=== PATIENT | female | born 1995 | race Hispanic/Latino ===

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

== ENCOUNTER 2017-05-02 16:53 | Inpatient (IN) | payer OTHER ==
[~2017-05-02] VITALS: Ht 157.5 cm; Wt 68.0 kg
[~2017-05-02 16:53] MED LIST changes: +METO10TA3 PO
[2017-05-02] MEDS ORDERED: Carboprost 250 mCg/mL Inj IM PRN (17:35)
[2017-05-02] MEDS ORDERED: Oxytocin 10 Unit/mL Inj IM PRN (17:35)
[2017-05-02] MEDS ORDERED: Lactated Ringer's 1,000 ML IV PRN (17:35)
[2017-05-02] MEDS ORDERED: Sodium Chloride LOK Flush 10 mL Syringe IVFLUSH PRN (17:35)
[2017-05-02] MEDS ORDERED: Hemorrhage Kit, Post Partum XX ONE (17:35)
[2017-05-02] MEDS ORDERED: Oxytocin 30 Units/500 mL LR 30 UNITS in IV Premix 1 EACH IV PRN (17:35)
[2017-05-02] MEDS ORDERED: Methylergonovine 0.2 mg/mL Inj IM PRN (17:35)
[2017-05-02] MEDS ORDERED: fentaNYL-PF 50 mCg/mL 2 mL Inj IVPUSH PRN (17:35)
[2017-05-02 18:15] LABS: Mean Corpuscular Hemoglobin 26.2 pg (27.0-35.0)
[2017-05-02] MEDS ORDERED: EPHEDrine Sulfate 50 mg/mL Inj IVPUSH PRN (19:20)
[2017-05-02] MEDS ORDERED: Ondansetron 2 mg/mL 2 mL Inj IVPUSH PRN (19:20)
[2017-05-02] MEDS ORDERED: Atropine 1 mg/10 mL (Code) Syringe IVPUSH PRN (19:20)
[2017-05-02] MEDS ORDERED: Lactated Ringer's 500 ML IV ONE (19:20)
[2017-05-02] MEDS ORDERED: fentaNYL 2 mCg/mL-Bupiv 0.125% 100 ML EPIDURAL SCH (19:20)
[2017-05-02] MEDS: Lactated Ringer's 1,000 ML IV SCH (19:20)
--- NOTE | 2017-05-02 20:01 | PCM.HPANE ---
Patient Data Surgeon Admitting Provider:Klaus Johansen MD Attending Provider:Klaus Johansen MD Primary Care Physician:Nopcp Other Provider: Reason for Visit Term Labor TERM LABOR Ht/WT & BMI Body Mass Index Allergies Coded Allergies: No Known Allergies (Verified Allergy, Unknown, 09/18/16) Past Anesthesia History Anesthesia History: Denies:: Abnormal Airway, Anesthesia Reactions, Difficult Intubation, Fam Anesthesia Reaction, Fam Malignant Hypertherm, Malignant Hyperthermia Diabetes History Hx Diabetes?: No MRSA MRSA: No Medications Hypertension Medication: No Home Meds Incl Beta Estrella: No Active Scripts Metoclopramide 10 Mg [id number] Mg PO QID PRN For Nausea #30 TABLET Ref 0 Prov:Jessika He MD 09/18/16 Amoxicillin 500 Mg [id number] Mg PO TID #21 CAPSULE Ref 0 Prov:Jessika He MD 08/29/16 Naproxen (Naprosyn)500 Mg [id number] Mg PO BID PRN For Pain #30 TABLET Prov:Colton Bui MD 11/21/15 Reported Medications Amphet Asp/Amphet/D-Amphet (Adderall)20 Mg [id number] Mg PO DAILY #30 TABLET Ref 0 02/19/15 History History of ENT Problems?: No HEENT History: Denies:: Abnormal Airway Cataracts Difficult Intubation Dysphagia Glaucoma Hearing Problem Sinus Problem TMJ Denture Type: None Teeth Condition: Within Normal Limits Hx of Heart Problems?: No Cardiovascular History: Denies:: AICD Abdominal Aortic Aneurism Atrial Fibrillation Cardiac Surgery Chest Pain Congestive Heart Failure Coronary Artery Disease Edema Heart Murmur Hypertension Irregular Heartbeat Pacemaker Peripheral Vascular Rheumatic Fever Thrombophlebitis Valvular Heart Disease Hx of Respiratory Problem?: No Respiratory History: Denies:: Asthma COPD Chest Surgery Cough Dyspnea Emphysema Hemoptysis Oxygen Administration Pneumonia Pulmonary Embolism Tuberculosis Use of C-PAP Machine Use of Inhalers / NEBS Hx Neurologic Problems?: No Neurological History: Denies:: Alzheimer's Disease CVA Dementia Dizziness Headaches Multiple Sclerosis Parkinson's Disease Peripheral Neuropathy Seizures TIA Hx of GI Problems?: No Gastrointestinal History: Denies:: Cirrhosis Diverticulitis Gall Bladder Disease Gastroesphageal Reflux Gastrointestinal Bleeding Heartburn Hepatitis Hiatal Hernia Liver Disease Rectal Bleeding Hx of Problems?: No Female Hx: Positive for:: Currently Hx Musculoskeletal Problems?: No Hx Surgeries?: No Hx Diabetes: No Hx Alcohol Use: NoHx Substance Use: No (occasional marijuana) Smoking Status: Never Smoker Have You Smoked inLast 12 mo: No Stop/Bang LEXI Risk Assessment: Low Risk, <3 Yes Risk Assessment Category Category 1A: Patient has history of documented sleep apnea, and HAS NOT received any narcotic, sedative or anesthesia administration during this stay. Category 1B: Patient has history of documented sleep apnea, and HAS received any narcotic , sedative or anesthesia administration during this stay Category 2: Patient has SUSPECTED Obstructive Sleep Apnea, and HAS received any narcotic , sedative or anesthesia administration during this stay. Category 3: Patient has SUSPECTED Obstructive Sleep Apnea and HAS NOT received narcotic, sedative or anesthesia administration during this stay. Category 4: Outpatient in Procedural Areas with known sleep apnea or who screen positive for High Risk via the STOP/BANG questionnaire. Exam Exam General Appearance: Alert, Oriented X3, Cooperative, No Acute Distress HEENT/AIRWAY: MP 2 Lungs: Clear to Auscultation, Normal Air Movement Heart: Exam Unremarkable, Regular Rate/Rhythm, No Murmurs/Rubs/Gallops Meds/Labs/Diagnostics Labs Test 05/02/17 18:00 White Blood Count 18.3th/mm3 (3.8-10.1) Red Blood Count 5.30mil/mm3 (3.90-5.20) Hemoglobin 13.9g/dL (12.0-15.6) Hematocrit 42.4% (35.0-46.0) Mean Corpuscular Volume 80.0fL (81-100) Mean Corpuscular Hemoglobin 26.2pg (27.0-35.0) Mean Corpuscular Hemoglobin Concent 32.8% (32.0-37.0) Red Cell Distribution Width 19.5% (12.3-15.4) Platelet Count 201bil/L (150-400) Plan Impression Patient chart reviewed, patient interviewed and anesthestic plan with risks, benefits, and alternatives discussed, and informed consent obtained. NPO per Anesth. Guidelines: Yes ASA Physical Status: ASA1 Normal Healthy Anesthetic Plan: Epidural Bene/Risks/Altern/Consents: Yes HP Complete Prior to Induction: Yes Kelvin Cotton MD May 02, 2017 19:20
[2017-05-03] MEDS: Lactated Ringer's 1,000 ML IV SCH ×6 (00:09→19:20)
[2017-05-03] MEDS ORDERED: Methylergonovine 0.2 mg/mL Inj IM PRN (00:10)
[2017-05-03] MEDS ORDERED: Hemorrhage Kit, Post Partum XX ONE (00:10)
[2017-05-03] MEDS ORDERED: Oxytocin 10 Unit/mL Inj IM PRN (00:10)
[2017-05-03] MEDS ORDERED: Oxytocin 30 Units/500 mL LR 30 UNITS in IV Premix 1 EACH IV PRN (00:10)
[2017-05-03] MEDS ORDERED: Benzocaine (Dermoplast) 20% 60 Gm Spray TOPICAL PRN (00:10)
[2017-05-03] MEDS ORDERED: Witch Hazel-Glycerin Pads TOPICAL PRN (00:10)
[2017-05-03] MEDS ORDERED: LANOlin HPA 7 Gm Ointment TOPICAL PRN (00:10)
[2017-05-03] MEDS ORDERED: Carboprost 250 mCg/mL Inj IM PRN (00:10)
--- NOTE | 2017-05-03 00:16 | PCM.OBVAG ---
Vaginal Delivery Date of Service May 03, 2017 Pre Operative Diagnosis Pre Operative Diagnosis Term gestation, labor Post Operative Diagnosis Post Operative Diagnosis Term gestation, delivered Procedure Obstetical Procedure: Normal Spontaneous Vaginal Delivery X Ray Inspector/Seismograph Observer Provider and Seismograph Observer: Klaus Johansen MD Indication for Procedure Induction: Active labor, AROM, Progressed normally through labor Findings Obstetrical Findings: (Female), Cord (3 Vessel), Presentation (Vertex) , Placenta (Intact/Normal), Perineal Laceration (None) Analgesia/Medications Obstetrical Anesthesia: Epidural Procedure Details Procedure Details Patient is a 22 year-old at 40 weeks EGA, presenting in active phase labor. Labor progressed without incident and she delivered via uncomplicated . Blood Loss & Administration Estimated Blood Loss: 250 Post Procedure Plan Post delivery Condition: Mom stable, Baby stable to nursery Klaus Johansen MD May 03, 2017 00:16
[2017-05-03] MEDS: Sodium Chloride LOK Flush 10 mL Syringe IVFLUSH SCH ×3 (00:30→16:30)
--- NOTE | 2017-05-03 07:10 | PCM.ANEP1 ---
Post Anesthesia PACU Phase 1 Assessment Anesthetic Administered: Epidural Level of Alertness: Awake, talking CHOPRA's with Equal Strength: Yes Pain: No Nausea or Vomiting: No CV Function & Hydration Stable: Yes Airway Device: none Oxygen Delivery: Room Air Lungs: Clear to Auscultation, Normal Air Movement PACU Phase 2 Assessment Complications: No Follow up Care: N/A Patient Instructions Provided: N/A Kelvin Cotton MD May 03, 2017 07:10
--- NOTE | 2017-05-03 08:42 | PCM.PNOBPP ---
Subjective Date of Service May 03, 2017 Post : Spontaneous Vaginal Delivery Visit History day #1 Subjective Patient without complaints. Lochia: Normal Pain Management: PO pain meds, No or Minimal Pain Gastrointestinal: Good Appetite Postop Activity: Ambulating Independently Labs Laboratory Tests 05/02/17 18:00: White Blood Count 18.3, Red Blood Count 5.30, Hemoglobin 13.9, Hematocrit 42.4, Mean Corpuscular Volume 80.0, Mean Corpuscular Hemoglobin 26.2, Mean Corpuscular Hemoglobin Concent 32.8, Red Cell Distribution Width 19.5, Platelet Count 201 Exam Vital Signs Vital Signs Vital Signs Date Time Temp Pulse Resp B/P Pulse Ox O2 Delivery O2 Flow Rate FiO2 05/03/17 07:10 Room Air Vital Signs: VS reviewed, stable Exam Abdomen: Uterus is (at the umbilicus) Perineum: Intact : Voiding without difficulty Lungs: Clear to Auscultation, Normal Air Movement Heart: Normal S1, Normal S2, No Murmurs/Rubs/Gallops General: Alert, Oriented X3, Cooperative, No Acute Distress OB Post Assessment/Plan Assessment PPD#1 -- doing well Problems: (1) Spontaneous vaginal delivery Status: Acute ICD Code: O80 (2) 40 weeks gestation of Status: Acute ICD Code: Z3A.40 (3) normal course Status: Acute ICD Code: Z39.2 Pain Evaluation: Adequate Pain Control Post plan: Continue routine post care, Discharge home tomorrow Klaus Johansen MD May 03, 2017 08:42
[2017-05-04 06:54] LABS: Mean Corpuscular Hemoglobin 26.4 pg (27.0-35.0); Mean Corpuscular Volume 81.3 fL (81-100)
--- NOTE | 2017-05-04 07:30 | PCM.PNOBPP ---
Subjective Date of Service May 04, 2017 Post : Spontaneous Vaginal Delivery Visit History day #2 Subjective Patient without complaints. Lochia: Normal Pain Management: PO pain meds, No or Minimal Pain Gastrointestinal: Good Appetite Postop Activity: Ambulating Independently Labs Laboratory Tests 05/04/17 06:25: White Blood Count 15.8, Red Blood Count 4.02, Hemoglobin 10.6, Hematocrit 32.7, Mean Corpuscular Volume 81.3, Mean Corpuscular Hemoglobin 26.4, Mean Corpuscular Hemoglobin Concent 32.4, Red Cell Distribution Width 19.8, Platelet Count 167 Exam Vital Signs Vital Signs: VS reviewed, stable Exam Abdomen: Uterus is (U-1), Fundus firm, Abdomen soft, Abdomen non-tender, Abdomen non-distended Perineum: Intact : Voiding without difficulty Extremities: No tenderness/swelling Lungs: Clear to Auscultation, Normal Air Movement Heart: Normal S1, Normal S2, No Murmurs/Rubs/Gallops General: Alert, Oriented X3, Cooperative, No Acute Distress OB Post Assessment/Plan Assessment PPD#2 -- doing well Problems: (1) Spontaneous vaginal delivery Status: Acute ICD Code: O80 (2) 40 weeks gestation of Status: Acute ICD Code: Z3A.40 (3) normal course Status: Acute ICD Code: Z39.2 Pain Evaluation: Adequate Pain Control Post plan: Anticipate discharge home today Klaus Johansen MD May 04, 2017 07:30
--- NOTE | 2017-05-04 07:33 | PCM.DC.OB ---
Obstetrical Discharge Summary Date of Service May 04, 2017 Date of hospital admission May 02, 2017 at 17:37 Date of Discharge: May 04, 2017 Providers Admitting Physician: Klaus Johansen MD Primary Care Physician: Nopcp Attending Physician: Klaus Johansen MD Problems: (1) Spontaneous vaginal delivery Status: Resolved ICD Code: O80 (2) 40 weeks gestation of Status: Resolved ICD Code: Z3A.40 (3) normal course Status: Resolved ICD Code: Z39.2 Brief History and Physical: 22yo presenting in active labor at 40 weeks EGA. Hospital Course: Patient was admitted in active phase labor. She had an uneventful labor course with an uncomplicated . course was uncomplicated as well. Amoxicillin (Amoxicillin) 500 Mg Capsule 500 MG PO TID Prescribed by: ELBERT HERNANDEZ MD Amphet Asp/Amphet/D-Amphet (Adderall) 20 Mg Tablet 20 MG PO DAILY (Reported) Metoclopramide (Metoclopramide) 10 Mg Tablet 10 MG PO QID PRN PRN For Nausea Prescribed by: ELBERT HERNANDEZ MD Naproxen (Naprosyn) 500 Mg Tablet 500 MG PO BID PRN PRN For Pain Prescribed by: KEVIN HANSON MD Disposition Home Follow-up plan 6 weeks Discharge Diet: No restrictions Discharge Activity-General: Pelvic Rest for 6 weeks Klaus Johansen MD May 04, 2017 07:33
--- NOTE | 2017-05-04 07:35 | PCM.DIOB ---
Obstetrical Disch Instruction Date of Service: May 04, 2017 Dates of Hospitalization Date of Hospital Admission May 02, 2017 at 17:37 Providers Admitting Physician: Klaus Johansen MD Primary Care Physician: Noparianne Attending Physician: Klaus Johansen MD Discharge Diagnosis Problems: (1) Spontaneous vaginal delivery Status: Resolved ICD Code: O80 (2) 40 weeks gestation of Status: Resolved ICD Code: Z3A.40 (3) normal course Status: Resolved ICD Code: Z39.2 Diet Discharge Diet: No restrictions Activity Discharge Activity-General: Pelvic Rest for 6 weeks Dressing and Incisional Care Hygiene: May shower Follow Up Plan Follow-up Provider (F9): Klaus Johansen MD Follow-up appointment: Weeks (6) Call your provider for: Fever or Chills, Shortness of breath, Heavy vaginal bleeding, Epigastric pain, Excessive constipation, Vaginal discomfort, Red painful breasts Klaus Johansen MD May 04, 2017 07:35
[2017-05-04] MEDS: Lactated Ringer's 1,000 ML IV SCH (08:09)
[2017-05-04] MEDS: Sodium Chloride LOK Flush 10 mL Syringe IVFLUSH SCH (08:30)
[2017-05-04 09:38] VITALS: BP 105/67; PULSE 85; RESP 18
== END 2017-05-04 13:52 | disposition home or self-care (01) | DRG 775 ==
LOC: FBCO 16:53 → FBC 17:37
PROVIDERS: ADMIT Family Medicine; ATTEND Family Medicine
PROC: 10E0XZZ Delivery of Products of Conception, External Approach (ICD-10-PCS; principal; 2017-05-03)
DX: O69.81X0 Labor and delivery complicated by cord around neck, without compression, not applicable or unspecified (principal); Z37.0 Single live birth; Z3A.40 40 weeks gestation of pregnancy